=== PATIENT | male | born 1990 | race Caucasian/White ===

== ENCOUNTER 2017-11-28 07:50 | Day surgery (SDC) | payer SELFPAY ==
[~2017-11-28] VITALS: Ht 172.7 cm; Wt 81.6 kg
[~2017-11-28 07:50] MED LIST: TYLENOL W/CODEI1 TAB PO
[2017-11-28] MEDS ORDERED: ALEVE220 MG PO (08:35)
[2017-11-28 08:47] VITALS: BP 124/76; Ht 172.7 cm; Wt 81.6 kg
== END 2017-11-28 14:50 | disposition home or self-care (01) ==
LOC: D.OPS 07:50 → D.PAN 09:45 → D.OPS 14:50
DX: S42.032A Displaced fracture of lateral end of left clavicle, initial encounter for closed fracture (principal); X58.XXXA Exposure to other specified factors, initial encounter; Z01.812 Encounter for preprocedural laboratory examination